=== PATIENT | female | born 1965 | race Hispanic/Latino ===

== ENCOUNTER 2017-03-18 01:45 | Emergency (ER) | payer OTHER ==
[2017-03-18 01:49] VITALS: BP 215/118; PULSE 90; RESP 16; O2SAT 100
--- NOTE | 2017-03-18 03:06 | ED.REPORT ---
HPI-Extremity Problem Upper Date of Service March 18, 2017 ED Provider: Carroll De Leon MD A 51 year old female presents to the ED complaining of right hand pain that began 2 days ago. She denies any recent injury but reports heavy lifting for the past few days. The pain is exacerbated by flexion of the hand. She denies any history of arthritis or any current medications. She denies any other injuries at this time. Nursing Notes Stated Complaint: R HAND PAIN Chief Complaint: General Complaint Nursing Notes Reviewed: Yes Allergies: Coded Allergies: No Known Allergies (Unverified , 03/18/17) Scheduled Prednisone (PredniSONE) 20 Mg Tablet 20 MG PO BID General Time Seen by MD: 03:04 Chief Complaint Wrist injury right Hx Obtained From: Patient Arrived By: Walk-in Onset Occurred: 2 days ago Symptom Duration: Since onset Location: : Wrist right Quality: Painful Severity: Current: Mild Severity: Maximum: Moderate Pertinent Negative: Pt denies other symptoms Exacerbated by: Flexion Recent Healthcare: No recent doctor visit, No recent hospitalization Past Medical History Past Medical History None reported Past Surgical History None reported Social History Other Social History: Good social support, From out of town ([place]) Ambulatory Status Independent Review of Systems Musculoskeletal: Reports: Extremity pain (right hand pain ), Joint pain (right wrist pain ) Neurologic: Denies: Numbness, Weakness Complete sys rev & neg: except as marked. Physical Exam Initial Vital Signs Vital Signs (First) Date Time Temp Pulse Resp B/P Pulse Ox O2 Delivery O2 Flow Rate FiO2 03/18/17 01:49 36.6 90 16 215/118 100 Room Air Initial VS: Reviewed, Vital signs abnormal Head / Eyes: Atraumatic, Normocephalic, PERRL Neck: Supple, Non-tender, Full range of motion Skin: Warm, Dry, No cyanosis Neurologic: Alert, Oriented, Nonfocal Psychiatric: Mood/affect normal, Behavior normal, Normal thought content General/Constitutional: Awake, Alert, No acute distress Respiratory / Chest: Atraumatic, No respiratory distress Upper Extremity / MS: Atraumatic, Neurologic intact, Vascular intact Wrist / Hand: Atraumatic, Neurologic intact, Vascular intact WRIST/HAND: Extensor tendons of right hand tender and swollen Lower Extremity / Pelvis / MS: Atraumatic, Neurologic intact, Vascular intact Procedures Splint Application - Fx Mgt Time: 03:46 Type of Immobilization: Sugar tong Definitive Fracture Care: Splint Post-Procedure / Complications: Cap refill normal, Post splint vascular nl, Post splint neuro nl, Condition improved, Tolerated procedure well, Patient stable Splint Post-Application Eval Extremity Condition: Cap refill < 2 sec, Distal sensation intact, Distal motor Intact, No compartment syndrome Re-Eval/Medical Decision Med Decision/Clinical Course 51-year-old female with tenderness and swelling of the dorsum of the right hand. There does not appear to be cellulitis or any break in the skin. She has been doing repetitive movement carrying boxes. I suspect that this is a repetitive motion tendinitis. She was fitted with a wrist splint and ibuprofen was recommended. Follow-up MANUEL if there is any evidence of infection, especially with fever or increasing pain. Re-Evaluation/Progress : Time of Eval: 03:47 Patient Status: Condition improved Re-Evaluation/Progress Note: She is informed of her diagnosis and recommended plan to follow up. Splint applied and pt tolerates well. Counseled Regarding: Diagnosis, Need for follow-up, When/why to return to ED Discharge & Departure Impression: Primary Impression: Tendinitis of extensor tendon of left hand Disposition: Home Discharge Condition All VS Reviewed: Yes Condition: Improved Additional Instructions: The tendons of the hand and wrist are inflamed from overuse. Splint and decrease use. Ice pack and elevation as needed. Prednisone 20 mg twice a day for 5 days, #10 prescription written. Ibuprofen 600 mg by mouth 3 times a day as needed Referrals: [facility] Scribe Attestation Portions of this note were transcribed by Luciano Linda. I, Dr. De Leon personally performed the history, physical exam and medical decision-making; I reviewed and confirmed the accuracy of the information in the transcribed note. Signed by: Peng Ferrer, 03/18/17 [id number]. Carroll De Leon MD March 18, 2017 03:06 LUCIANO LINDA March 18, 2017 03:11
[2017-03-18] MEDS ORDERED: predniSONE 20 mg Tablet PO ONE (03:20)
[2017-03-18] MEDS ORDERED: PRE20 PO (03:46)
[2017-03-18 04:17] VITALS: BP 176/97; PULSE 79; RESP 16; O2SAT 100
== END 2017-03-18 04:18 | disposition home or self-care (01) ==
LOC: SED 01:45
DX: M77.9 Enthesopathy, unspecified (principal); X50.9XXA Other and unspecified overexertion or strenuous movements or postures, initial encounter; Y93.89 Activity, other specified; Y92.9 Unspecified place or not applicable; Y99.0 Civilian activity done for income or pay